=== PATIENT | male | born 1950 | race Caucasian/White ===

== ENCOUNTER 2017-02-19 10:23 | Emergency (ER) | payer OTHER ==
[~2017-02-19] VITALS: Ht 185.4 cm; Wt 67.7 kg
[~2017-02-19 10:23] MED LIST: ASPI81TA82 PO; VITA400C28 PO
[2017-02-19 10:29] VITALS: BP 157/75; PULSE 115; RESP 22; TEMP 98.9; O2SAT 94
[2017-02-19 10:42] VITALS: BP 158/70; PULSE 74; RESP 20; TEMP 99.3; O2SAT 96
[2017-02-19] MEDS ORDERED: SODIUM CHLOR 0.9% 1000 ML INJ 1,000 ML IV ONE (11:00)
[2017-02-19] MEDS ORDERED: ONDANSETRON HCL 4 MG/2 ML VIAL IV PUSH ONE (11:00)
--- NOTE | 2017-02-19 11:01 | PD ---
HPI Chief Complaint: GI Complaint Time Seen by Provider: 10:52 Travel History International Travel<30 days: No Contact w/Intl Traveler<30days: No Traveled to known affect area: No History of Present Illness HPI This 66-year-old male is complaining of vomiting and diarrhea. 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 He says he has had 3 or 4 episodes of diarrhea per day and has been vomiting sporadically. He has no history of abdominal surgery. He does drink a fair amount of beer daily. He has not been able to drink the last few days. He smokes a pack of cigarettes a day. He is not aware of any fever or chills. He's had some sweats at night PFSH Past Medical History Blood Disorders: No Cancer: No Cardiovascular Problems: Yes (CALCIFICATION OF DESENDING AORTA.) COPD: Yes (EMPHYSEMA) Diminished Hearing: No Endocrine: No Gastrointestinal Disorders: No Genitourinary: No Immune Disorder: No Neurologic: No Psychiatric: No Past Surgical History AICD: No Joint Replacement: No Pacemaker: No Tonsillectomy: Yes Other Surgery: No Social History Alcohol Use: Yes (6 PACK A DAY) Tobacco Use: Yes (1 PPD) Substance Use: No Allergies-Medications (Allergen,Severity, Reaction): Coded Allergies: No Known Allergies (Verified Adverse Reaction, Unknown, 02/19/17) Reported Meds & Prescriptions Reported Meds & Active Scripts Active Reported Vitamin D 400 Unit Tab 400 Unit PO DAILY Aspir-81 (Aspirin) 81 Mg Tab 81 Mg PO DAILY Review of Systems General / Constitutional: No: Fever, Chills Eyes: No: Diploplia, Blurred Vision HENT: No: Headaches, Vertigo Cardiovascular: No: Chest Pain or Discomfort, Palpitations Respiratory: No: Cough, Shortness of Breath Gastrointestinal: Positive: Nausea, Vomiting, Diarrhea, Loss of Appetite Genitourinary: No: Urgency, Frequency Musculoskeletal: No: Myalgias, Arthralgias Skin: No Rash, No Itching Psychiatric: No: Anxiety Hematologic/Lymphatic: No: Easy Bruising Physical Exam Narrative GENERAL: Well-developed male SKIN: Focused skin assessment warm/dry. HEAD: Atraumatic. Normocephalic. EYES: Pupils equal and round. No scleral icterus. No injection or drainage. ENT: No nasal bleeding or discharge. Mucous membranes pink and moist. NECK: Trachea midline. No JVD. CARDIOVASCULAR: Regular rate and rhythm. No murmur appreciated. RESPIRATORY: No accessory muscle use. Clear to auscultation. Breath sounds equal bilaterally. He does have a barrel chest GASTROINTESTINAL: Abdomen soft, non-tender, nondistended. Hepatic and splenic margins not palpable. MUSCULOSKELETAL: No obvious deformities. No clubbing. No cyanosis. No edema. NEUROLOGICAL: Awake and alert. No obvious cranial nerve deficits. Motor grossly within normal limits. Normal speech. PSYCHIATRIC: Appropriate mood and affect; insight and judgment normal. Data Data Last Documented VS Vital Signs Date Time Temp Pulse Resp B/P (MAP) Pulse Ox O2 Delivery O2 Flow Rate FiO2 02/19/17 11:49 98 20 126/70 (88) 96 Nasal Cannula 2.00 02/19/17 10:42 99.3 Orders Orders Complete Blood Count With Diff (02/19/17 10:57) Comprehensive Metabolic Panel (02/19/17 10:57) Lipase (02/19/17 10:57) Sodium Chlor 0.9% 1000 Ml Inj (Ns 1000 M (02/19/17 11:00) Ondansetron Inj (Zofran Inj) (02/19/17 11:00) Labs Laboratory Tests Test 02/19/17 11:10 White Blood Count 9.1 TH/MM3 Red Blood Count 5.03 MIL/MM3 Hemoglobin 16.0 GM/DL Hematocrit 46.7 % Mean Corpuscular Volume 92.8 FL Mean Corpuscular Hemoglobin 31.7 PG Mean Corpuscular Hemoglobin Concent 34.2 % Red Cell Distribution Width 12.6 % Platelet Count 183 TH/MM3 Mean Platelet Volume 7.7 FL CBC Comment AUTO DIFF Differential Total Cells Counted 100 Neutrophils % (Manual) 65 % Band Neutrophils % 7 % Lymphocytes % 7 % Monocytes % 20 % Basophils % 1 % Neutrophils # (Manual) 6.6 TH/MM3 Differential Comment FINAL DIFF MANUAL Platelet Estimate NORMAL Platelet Morphology Comment NORMAL Red Cell Morphology Comment NORMAL Blood Urea Nitrogen 21 MG/DL Creatinine 1.00 MG/DL Random Glucose 94 MG/DL Total Protein 7.9 GM/DL Albumin 3.2 GM/DL Calcium Level 9.0 MG/DL Alkaline Phosphatase 47 U/L Aspartate Amino Transf (AST/SGOT) 66 U/L Alanine Aminotransferase (ALT/SGPT) 46 U/L Total Bilirubin 0.6 MG/DL Sodium Level 133 MEQ/L Potassium Level 4.9 MEQ/L Chloride Level 96 MEQ/L Carbon Dioxide Level 26.0 MEQ/L Anion Gap 11 MEQ/L Estimat Glomerular Filtration Rate 74 ML/MIN Lipase 304 U/L [facility] Medical Decision Making Medical Screen Exam Complete: Yes Emergency Medical Condition: Yes Medical Record Reviewed: Yes Differential Diagnosis Differential includes food poisoning, gastroenteritis, Narrative Course White count is 9000. Patient given IV fluids and Zofran and reports feeling better. Impression is gastroenteritis Diagnosis Primary Impression: Gastroenteritis Scripts Ondansetron Odt (Zofran Odt) 4 Mg Tab 4 MG SL Q8HR Y for Nausea/Vomiting, #10 TAB 0 Refills Prov: Kilo Pérez MD 02/19/17 Disposition: 01 DISCHARGE HOME Condition: Stable Kilo Pérez MD Feb 19, 2017 11:01
[2017-02-19 11:18] LABS: HEMATOCRIT 46.7 % (39.0-51.0); MEAN CELL VOLUME 92.8 FL (80.0-100.0); MEAN CORPUSCULAR HEMOGLOBIN 31.7 PG (27.0-34.0); MEAN CORPUSCULAR HGB CONC 34.2 % (32.0-36.0); PLATELET COUNT 183 TH/MM3 (150-450); RED BLOOD COUNT 5.03 MIL/MM3 (4.50-5.90); RED CELL DISTRIBUTION WIDTH 12.6 % (11.6-17.2); WHITE BLOOD COUNT 9.1 TH/MM3 (4.0-11.0)
[2017-02-19 11:19] VITALS: BP 136/67; PULSE 100; RESP 20; O2SAT 94
[2017-02-19 11:23] LABS: CHLORIDE 96 MEQ/L (98-107); POTASSIUM 4.9 MEQ/L (3.5-5.1); SODIUM (NA) 133 MEQ/L (136-145)
[2017-02-19 11:27] LABS: ANION GAP 11 MEQ/L (5-15); BLOOD UREA NITROGEN 21 MG/DL (7-18)
[2017-02-19 11:30] LABS: ALT (GPT) 46 U/L (12-78); AST (GOT) 66 U/L (15-37); GLOMERULAR FILTRATION RATE 74 ML/MIN (>89)
[2017-02-19 11:31] LABS: TOTAL BILIRUBIN ADULT 0.6 MG/DL (0.2-1.0)
[2017-02-19 11:33] LABS: ALKALINE PHOSPHATASE 47 U/L (45-117)
[2017-02-19 11:49] VITALS: BP 126/70; PULSE 98; RESP 20; O2SAT 96
[2017-02-19 11:52] LABS: HEMO FLAGS AUTO DIFF
[2017-02-19 12:32] LABS: BANDS 7 % (0-6); BASOPHILS 1 % (0-2); NEUTROPHIL # MANUAL DIFF 6.6 TH/MM3 (1.8-7.7); POLYS (SEG NEUTROPHILS) 65 % (16-70); WBC DIFF SAMPLE 100
[2017-02-19 12:33] LABS: PLATELET ESTIMATE SMEAR NORMAL (NORMAL); PLATELET MORPHOLOGY NORMAL (NORMAL); SCAN/DIFF FINAL DIFF MANUAL
[2017-02-19] MEDS ORDERED: ZOFR4TAB3 SL (12:49)
[2017-02-19 12:52] VITALS: BP 138/73; PULSE 90; RESP 20; O2SAT 95
== END 2017-02-19 13:01 | disposition home or self-care (01) ==
LOC: PHED 10:23
DX: K52.9 Noninfective gastroenteritis and colitis, unspecified (principal); J43.9 Emphysema, unspecified; I70.0 Atherosclerosis of aorta; F17.210 Nicotine dependence, cigarettes, uncomplicated; Z79.82 Long term (current) use of aspirin
CPT/HCPCS: 80053; 83690; 85007; 85027; 96361; 96374; 99284; J2405; J7030